=== PATIENT | female | born 1980 | race Two or more races ===

== ENCOUNTER 2018-03-07 16:42 | Emergency (ER) | payer OTHER | END 2018-03-07 18:20 | disposition home or self-care (01) | LOC: ER 18:20 | DX: M54.5 Low back pain (principal); M25.552 Pain in left hip; V43.52XA Car driver injured in collision with other type car in traffic accident, initial encounter; Y93.89 Activity, other specified; Y92.488 Other paved roadways as the place of occurrence of the external cause; Y99.8 Other external cause status | CPT/HCPCS: 72100; 73502; 99284 ==